=== PATIENT | male | born 1955 | race Two or more races ===

== ENCOUNTER 2019-12-14 17:56 | Emergency (ER) | payer SELFPAY ==
[~2019-12-14] VITALS: Ht 170.2 cm; Wt 75.7 kg
[2019-12-14 18:10] VITALS: BP 128/96
[2019-12-14] MEDS ORDERED: Azithromycin 250mg tab ORAL ONE (18:15)
[2019-12-14] MEDS ORDERED: Lidocaine 1% MPF 10mg/ml 5ml INJ ONE (18:15)
[2019-12-14 18:43] LABS: APPEARANCE,URINE CLEAR; BILIRUBIN, URINE NEGATIVE (NEGATIVE); GLUCOSE, URINE (UA) NEGATIVE (NEGATIVE); KETONES,URINE 3+ (NEGATIVE); LEUKOCYTE ESTERASE ,URINE NEGATIVE (NEGATIVE); NITRITE,URINE NEGATIVE (NEGATIVE); PH,URINE 5 (4.5-8.0); PROTEIN,URINE 1+ (NEGATIVE); UROBILINOGEN,URINE NORMAL MG/DL (0.0-1.0)
[2019-12-14 18:52] LABS: COLOR,URINE YELLOW
--- NOTE | 2019-12-14 18:58 | Emergency Room Report ---
History of Present Illness General Chief Complaint: Male Urogenital Problems Source: Patient Present Illness HPI 64-year-old male with no significant past medical history here complaining of over 1 month of suprapubic pressure, dysuria and urinary frequency. Reports that he has been to 2 other hospitals in the past but in been treated with ciprofloxacin as well as Bactrim for UTI symptoms however does not feel any improvement. Also complains of nocturnal urination and post void all residue. Denies any flank pain, fever chills, penile discharge. Reports that her symptoms started few days after he was sexually active, unprotected, with a female partner. Has not been treated prophylactically for possible STD. Denies diffuse abdominal pain, nausea vomiting, diarrhea or constipation. Denies blood in stool. Appears to be stable, with stable vital signs. Allergies: Coded Allergies: No Known Allergies (Unverified , 12/14/19) COVID-19 Screening Contact w/high risk pt: No Recent Travel to affected area: No Experienced COVID-19 symptoms?: No Patient History Past Medical History: see triage record Past Surgical History: none Pertinent Family History: none Immunizations: UTD Reviewed Nursing Documentation: PMH: Agreed; PSxH: Agreed Nursing Documentation-PMH Past Medical History: No Stated History Review of Systems All Other Systems: negative except mentioned in HPI Physical Exam Vital Signs Date Time Temp Pulse Resp B/P (MAP) Pulse Ox O2 Delivery O2 Flow Rate FiO2 12/14/19 18:01 97.5 81 18 128/96 (107) 99 Room Air Sp02 EP Interpretation: reviewed, normal General Appearance: no apparent distress, alert, GCS 15, non-toxic Head: normocephalic, atraumatic Eyes: bilateral eye normal inspection, bilateral eye PERRL ENT: hearing grossly normal, normal pharynx, no angioedema, normal voice Neck: full range of motion, supple/symm/no masses Respiratory: chest non-tender, lungs clear, normal breath sounds, no rhonchi, no wheezing, speaking full sentences Cardiovascular #1: regular rate, rhythm, no edema Gastrointestinal: non tender, soft Rectal: deferred Genitourinary: no CVA tenderness Musculoskeletal: back normal, no calf tenderness Neurologic: alert, motor strength/tone normal, oriented x3, sensory intact, responsive, speech normal Psychiatric: judgement/insight normal, memory normal, mood/affect normal, no suicidal/homicidal ideation Skin: no rash Lymphatic: no adenopathy Medical Decision Making PA Attestation Diagnosis and treatment plans were reviewed and discussed with my supervising physician Dr. Friedman Diagnostic Impression: Primary Impression: Prostatitis Additional Impression: BPH (benign prostatic hyperplasia) ER Course 64-year-old male with no significant past medical history here complaining of over 1 month of suprapubic pressure, dysuria and urinary frequency. Reports that he has been to 2 other hospitals in the past but in been treated with ciprofloxacin as well as Bactrim for UTI symptoms however does not feel any improvement. Also complains of nocturnal urination and post void all residue. Denies any flank pain, fever chills, penile discharge. Reports that her symptoms started few days after he was sexually active, unprotected, with a female partner. Has not been treated prophylactically for possible STD. Denies diffuse abdominal pain, nausea vomiting, diarrhea or constipation. Denies blood in stool. Appears to be stable, with stable vital signs. Ddx considered but are not limited to: UTI, pyelonephritis, urinary incontinence , prolapsed bladder, BPH, prostatitis Vital signs: are WNL, pt. is afebrile H&PE are most consistent with: Pyelonephritis, BPH ORDERS: UA, urine cx, Keflex, tamsulosin ED INTERVENTIONS: Rocephin IM, azithromycin p.o. DISCHARGE: At this time pt. is stable for d/c to home. Will provide printed patient care instructions, and any necessary prescriptions. Care plan and follow up instructions have been discussed with the patient prior to discharge. Gave a list of free clinics for patient to follow-up patient to establish a primary doctor for referral to urologist. Take medication as directed. Refrain from sexual encounter without protection. Patient agreed to be prophylactically treated for chlamydia and gonorrhea. Last Vital Signs Date Time Temp Pulse Resp B/P (MAP) Pulse Ox O2 Delivery O2 Flow Rate FiO2 12/14/19 18:10 97.5 80 18 128/96 99 Room Air Disposition: HOME, SELF-CARE Condition: Stable Referrals: NOT CHOSEN [facility]/MD,REFERRING (PCP) Patient Instructions: Benign Prostatic Hyperplasia, Urinary Tract Infection Additional Instructions: Gave a list of free clinics for patient to follow-up patient to establish a primary doctor for referral to urologist. Take medication as directed. Refrain from sexual encounter without protection. Patient agreed to be prophylactically treated for chlamydia and gonorrhea. Augusto Kincaid December 14, 2019 18:58
[2019-12-14] MEDS ORDERED: FLOMAX0.4 MG ORAL (19:00)
[2019-12-14] MEDS ORDERED: CEPHALEXIN500 M1 ORAL (19:00)
[2019-12-14 19:01] VITALS: BP 117/78
== END 2019-12-14 19:04 | disposition home or self-care (01) ==
LOC: EMR 18:25
DX: N41.9 Inflammatory disease of prostate, unspecified (principal); N40.0 Benign prostatic hyperplasia without lower urinary tract symptoms
CPT/HCPCS: 81003; 96372; 96374; 99284; J0696